=== PATIENT | male | born 1940 | race Caucasian/White ===

== ENCOUNTER → 2018-10-30 | Outpatient (CLI) | payer MEDICARE ==
--- NOTE | 2018-10-30 14:46 | ECHOF ---
Referral Reason:R01.1 Cardiac murmur, unspecified MEASUREMENTS -------- HEIGHT: 162.6 cm WEIGHT: 74.8 kg BP: RVIDd: 2.1 cm (< 3.3) IVSd: 1.2 cm (0.6 - 1.1) LVIDd: 5.2 cm (3.9 - 5.3) LVPWd: 0.9 cm (0.6 - 1.1) IVSs: 1.6 cm LVIDs: 3.5 cm LVPWs: 1.3 cm LA Diam: 3.8 cm (2.7 - 3.8) LAESV Index (A-L): 28.18 ml/m Ao Diam: 3.1 cm (2.0 - 3.7) LA Diam: 3.0 cm (2.7 - 3.8) EPSS: 0.5 cm MV E Jaya: 0.57 m/s MV DecT: 342 ms MV A Jaya: 0.74 m/s MV E/A Ratio: 0.78 AV maxP.09 mmHg AV meanP.84 mmHg AR PHT: 351 ms RAP: 5.00 mmHg RVSP: 22.04 mmHg MV EF SLOPE: 67.58 mm/s (70 - 150) MV EXCURSION: 1.59 cm (> 18.000) FINDINGS -------- Sinus rhythm. This was a technically adequate study. The left ventricular size is normal. There is mild concentric left ventricular hypertrophy. Overa ll left ventricular systolic function is normal with, an EF between 55 - 60 %. The right ventricle is normal in size. Normal LA size by volume 22+/-6 ml/m2. The right atrial size is normal. There is moderate aortic valve sclerosis. There is mild aortic regurgitation. There is moderate-t o-severe aortic stenosis present. Peak/mean gradient across the Aortic Valve is 63.09mmHg / 34.84mm Hg. Mild mitral annular calcification present. Mild mitral regurgitation is present. Mild tricuspid regurgitation present. Right ventricular systolic pressure is normal at < 35 mmHg. The right ventricular systolic pressure, as measured by Doppler, is 22.04mmHg. Trace/mild (physiologic) pulmonic regurgitation. The aortic root size is normal. There is no pericardial effusion. CONCLUSIONS -------- 1. Sinus rhythm. 2. This was a technically adequate study. 3. The left ventricular size is normal. 4. There is mild concentric left ventricular hypertrophy. 5. Overall left ventricular systolic function is normal with, an EF between 55 - 60 %. 6. Normal LA size by volume 22+/-6 ml/m2. 7. There is moderate aortic valve sclerosis. 8. There is mild aortic regurgitation. 9. There is [id number] aortic stenosis present. 10. Peak/mean gradient across the Aortic Valve is 63.09mmHg / 34.84mmHg. 11. Mild mitral annular calcification present. 12. Mild mitral regurgitation is present. 13. Mild tricuspid regurgitation present. 14. Right ventricular systolic pressure is normal at < 35 mmHg. 15. Trace/mild (physiologic) pulmonic regurgitation. 16. The aortic root size is normal. 17. There is no pericardial effusion. VACATION PLANNER: Etta Priest RDCS
== END | disposition home or self-care (01) ==
LOC: RADECHMAIN 11:29
PROVIDERS: ATTEND Internal Medicine
DX: I35.0 Nonrheumatic aortic (valve) stenosis (principal); I51.7 Cardiomegaly
CPT/HCPCS: 93306

== ENCOUNTER → 2020-06-11 | Outpatient (CLI) | payer MEDICARE ==
[2020-06-11 12:02] LABS: Basophils % (A) 1 %; Eosinophils # (A) 0.1 k/uL (0-0.7); Eosinophils % (A) 2 %; HCT 45.6 % (39.0-53.0); HGB 14.7 gm/dL (13.0-17.5); Lymphocytes # (A) 1.5 k/uL (1.0-4.8); Lymphocytes % (A) 26 %; MCH 30.5 pg (25.0-35.0); MCHC 32.3 g/dL (31.0-37.0); MCV 94.3 fL (80.0-100.0); Monocytes # (A) 0.3 k/uL (0-1.0); Monocytes % (A) 6 %; Neutrophils # (A) 3.6 k/uL (1.3-7.7); Neutrophils % (A) 64 %; Platelet Count 190 k/uL (150-450); RBC 4.84 m/uL (4.30-5.90); RDW 12.9 % (11.5-15.5); WBC 5.7 k/uL (3.8-10.6)
[2020-06-11 17:07] LABS: African American GFR (CKD) 95.1 (60.0-200.0); Albumin/Globulin Ratio 1.43 (1.60-3.17); Anion Gap 7.9 mmol/L (4.00-12.00); BUN/Creat Ratio 22.22 Ratio (12.00-20.00); Calcium 8.8 mg/dL (8.7-10.3); Carbon Dioxide 27.1 mmol/L (21.6-31.8); Chol/HDL Ratio 3.96; Globulin 2.8 g/dL (1.6-3.3); LDL Cholesterol,Calculated 129.6 mg/dL (0.0-131.0); Non-African American GFR(CKD) 82.1 (60.0-200.0); Potassium 3.8 mmol/L (3.5-5.5); Total Bilirubin 0.7 mg/dL (0.3-1.2); Total Protein 6.8 g/dL (6.2-8.2); VLDL Calculation 15.4 mg/dL (5.00-40.00)
[2020-06-11 17:18] LABS: PSA Annual Screen 1.7 ng/mL (0.0-4.0)
== END | disposition home or self-care (01) ==
LOC: LABWHC1 09:38
PROVIDERS: ATTEND Internal Medicine
DX: Z00.01 Encounter for general adult medical examination with abnormal findings (principal); Z12.5 Encounter for screening for malignant neoplasm of prostate; N18.3 Chronic kidney disease, stage 3 (moderate); F01.50 Vascular dementia, unspecified severity, without behavioral disturbance, psychotic disturbance, mood disturbance, and anxiety
CPT/HCPCS: 80061; 80053; 85025; 36415; G0103

== ENCOUNTER 2024-02-27 08:40 | Emergency (ER) | payer MEDICARE, OTHER ==
--- NOTE | 2024-02-27 09:01 | ED ---
General Adult HPI - General Chief complaint: Fall Stated complaint: Fall Time Seen by Provider: 02/27/24 08:43 Source: patient, EMS, RN notes reviewed Mode of arrival: EMS Limitations: no limitations - History of Present Illness Initial comments: Patient is a pleasant 83-year-old male presenting to the emergency department with concerns for fall. Incident occurred last night. Patient was walking to the restroom when he fell. No reported loss of consciousness or syncope. Patient states he feels fine at this time and has no complaints. - Related Data Allergies Allergy/AdvReac Type Severity Reaction Status Date / Time No Known Allergies Allergy Verified 02/27/24 08:54 Review of Systems ROS Statement: Those systems with pertinent positive or pertinent negative responses have been documented in the HPI. ROS Other: All systems not noted in ROS Statement are negative. Constitutional: Denies: fever Eyes: Denies: eye pain ENT: Denies: ear pain Respiratory: Denies: dyspnea Cardiovascular: Denies: chest pain Gastrointestinal: Denies: abdominal pain Past Medical History Past Medical History: Cancer, Dementia, GERD/Reflux Past Surgical History: Unable to Obtain Smoking Status: Unknown if ever smoked Past Alcohol Use History: Unable to Obtain Past Drug Use History: Unable to Obtain General Exam Limitations: no limitations General appearance: alert, in no apparent distress Head exam: Present: other (Facial laceration above the left lip. Postoperative changes on the right) Eye exam: Present: normal appearance, PERRL, EOMI ENT exam: Present: normal oropharynx, other (Mild tenderness left mandibular region) Neck exam: Present: normal inspection Respiratory exam: Present: normal lung sounds bilaterally Cardiovascular Exam: Present: regular rate, normal rhythm GI/Abdominal exam: Present: soft. Absent: tenderness Extremities exam: Present: normal inspection, full ROM. Absent: tenderness Neurological exam: Present: alert, CN II-XII intact. Absent: motor sensory deficit Psychiatric exam: Present: normal affect, normal mood Skin exam: Present: other (Laceration above left lip) Course Vital Signs 02/27/24 08:48 Temperature 97.5 F L Pulse Rate 71 Respiratory 18 Rate Blood Pressure 106/68 O2 Sat by Pulse 93 L Oximetry Procedures - Laceration Laceration #1 Consent Obtained: verbal consent Indication: laceration Site: face Size (cm): 3 Description: linear Depth: simple, single layer Pre-repair: irrigated extensively Type of Sutures: other (Closed with tissue adhesive) Patient Tolerated Procedure: well, no complications Medical Decision Making - Medical Decision Making Was pt. sent in by a medical professional or institution (, JEANETH, MANAGER MECHAN[employer], urgent care, hospital, or assisted...) When possible be specific @ -Patient was sent in from assisted Did you speak to anyone other than the patient for history (EMS, parent, family, police, friend...)? What history was obtained from this source @ -No Did you review nursing and triage notes (agree or disagree)? Why? @ -I reviewed and agree with nursing and triage notes Were old charts reviewed (outside hosp., previous admission, EMS record, old EKG, old radiological studies, urgent care reports/EKG's, assisted records)? Report findings @ -prison notes reviewed including patient history of fall Differential Diagnosis (chest pain, altered mental status, abdominal pain women, abdominal pain men, vaginal bleeding, weakness, fever, dyspnea, syncope, headache, dizziness, GI bleed, back pain, seizure, CVA, palpatations, mental health, musculoskeletal)? @ -Differential Musculoskeletal Muscular strain, contusion, ligament sprain, fracture, arthritis, septic arthritis, bursitis, cellulitis, muscle spasm, nerve compression, DVT, arterial occlusion, herpes zoster, electrolyte abnormality, tumor.... This is not meant to be in all inclusive list EKG interpreted by me (3pts min.). @ -As above X-rays interpreted by me (1pt min.). @ -Mandible x-ray shows postoperative changes. No acute process CT interpreted by me (1pt min.). @ -CT scan brain and cervical spine without acute abnormality U/S interpreted by me (1pt. min.). @ -None done What testing was considered but not performed or refused? (CT, X-rays, U/S, labs)? Why? @ -None What meds were considered but not given or refused? Why? @ -None Did you discuss the management of the patient with other professionals (professionals i.e. JEANETH Martínez, MANAGER MECHANICAL, lab, RT, psych nurse, social service technician, salt machine operator, teacher, legal officer, medical case manager)? Give summary @ -No Was smoking cessation discussed for >3mins.? @ -No Was critical care preformed (if so, how long)? @ -No Were there social determinants of health that impacted care today? How? (Homelessness, low income, unemployed, alcoholism, drug addiction, transportation, low edu. Level, literacy, decrease access to med. care, skilled nursing, rehab)? @ -No Was there de-escalation of care discussed even if they declined (Discuss DNR or withdrawal of care, Hospice)? DNR status @ -No What co-morbidities impacted this encounter? (DM, HTN, Smoking, COPD, CAD, Cancer, CVA, ARF, Chemo, Hep., AIDS, mental health diagnosis, sleep apnea, morbid obesity)? @ -None Was patient admitted / discharged? Hospital course, mention meds given and route, prescriptions, significant lab abnormalities, going to OR and other pertinent info. @ -Hospital course Undiagnosed new problem with uncertain prognosis? @ -No Drug Therapy requiring intensive monitoring for toxicity (Heparin, Nitro, Insulin, Cardizem)? @ -No Were any procedures done? @ -Laceration repair, see above Diagnosis/symptom? @ -Fall, head contusion, lip laceration Acute, or Chronic, or Acute on Chronic? @ -Acute, acute, acute Uncomplicated (without systemic symptoms) or Complicated (systemic symptoms)? @ -Default Side effects of treatment? @ -No Exacerbation, Progression, or Severe Exacerbation? @ -No Poses a threat to life or bodily function? How? (Chest pain, [place], [place], pneumonia, PE, COPD, DKA, ARF, appy, cholecystitis, CVA, Diverticulitis, Homicidal, Suicidal, threat to staff... and all critical care pts) @ -No Head CT was ordered secondary to unclear exact mechanism of injury and patient with chronic baseline altered mental status and unable to provide complete history Disposition Clinical Impression: Fall Disposition: HOME SELF-CARE Condition: Stable Instructions (If sedation given, give patient instructions): Fall Prevention for Older Adults (ED), Skin Adhesive Care (ED), Head Injury (ED) Additional Instructions: Please do follow-up with primary care physician in the next couple of days for recheck. Return for confusion, weakness, worsening or changing symptoms or other concerns. Is patient prescribed a controlled substance at d/c from ED?: No Referrals: Yvette Harding DO [Primary Care Provider] - 1-2 days Time of Disposition: 10:33
[2024-02-27 09:16] VITALS: RESP 18; TEMP 97.5
--- NOTE | 2024-02-27 09:34 | CT ---
EXAMINATION TYPE: CT brain sourav wo con DATE OF EXAM: 02/27/2024 COMPARISON: 12/05/2013 HISTORY: Fall CT DLP: 1430.[address] of the brain was performed. Examination is limited by patient rotation. There is left facial soft tissue prominence noted which could be based on the rotation versus soft ti ssue edema. Correlate clinically. The ventricles, basal cisterns and sulci overlying the cerebral convexities demonstrate mildly enlarg ement. There is no evidence for intracranial hemorrhage or sulcal effacement. There is decreased attenuatio n about the periventricular white matter and deep white matter of both cerebral hemispheres, compatib le with chronic small vessel ischemia. No mass effects are seen. If symptoms persist consider MRI. Osseous calvarium is intact. IMPRESSION: 1. Age related atrophic and chronic small vessel ischemic change without acute intracranial process seen at this time. CT Cervical Spine: Unenhanced CT of the cervical spine was performed with bone and soft tissue window settings submitted . Coronal and sagittal reconstruction is obtained. There is normal alignment and prevertebral soft tissues. No evidence for acute cervical fracture . Scattered degenerative disc disease and spondylosis. Biapical scarring. IMPRESSION: 1. No evidence for acute fracture or subluxation of the cervical spine.
[2024-02-27] MEDS: TOPICAL SKIN ADHESIVE 1 EACH AMP TOPICAL ONE (09:39)
[2024-02-27] MEDS: DIPH,PERTUS(ACELL)TETVAC-LF 0.5 ML VIAL IM ONE (09:40)
--- NOTE | 2024-02-27 10:24 | XR ---
EXAMINATION TYPE: XR mandible complete DATE OF EXAM: 02/27/2024 COMPARISON: None HISTORY: Fall, pain TECHNIQUE: 5 view mandible FINDINGS: Multiple vascular clips are present on the right. Temporomandibular junctions as visualized appear normal. The patient is edentulous. No acute fracture s are identified. IMPRESSION: 1. No acute osseous abnormality mandible.
[2024-02-27 10:37] VITALS: BP 109/65; PULSE 62
== END 2024-02-27 11:10 | disposition home or self-care (01) ==
LOC: EC 08:40
DX: S01.511A Laceration without foreign body of lip, initial encounter (principal); Z23 Encounter for immunization; W18.30XA Fall on same level, unspecified, initial encounter; Y93.01 Activity, walking, marching and hiking
CPT/HCPCS: 12011; 12013; 70110; 70450; 72125; 90471; 90715; 99284